=== PATIENT | female | born 1970 | race Caucasian/White ===

== ENCOUNTER → 2022-02-18 | Outpatient (CLI) | payer OTHER ==
--- NOTE | 2022-02-18 15:01 | US ---
EXAMINATION TYPE: US extremity nonvasculr ltd LT DATE OF EXAM: 02/18/2022 COMPARISON: NONE CLINICAL HISTORY: M25.562 PAIN IN LEFT KNEE. Patient has pain behind left knee, especially when she walks. No evident Austin's cyst. Popliteal artery appears to have a possible narrowing. IMPRESSION: 1. Possible narrowing of the popliteal artery. Consider additional workup with a CTA runoff.
== END | disposition home or self-care (01) ==
LOC: RADUSWWP 10:55
PROVIDERS: ATTEND Family Medicine
DX: M25.562 Pain in left knee (principal)

== ENCOUNTER → 2022-09-05 | Outpatient (CLI) | payer OTHER ==
--- NOTE | 2022-09-05 12:10 | MR ---
EXAMINATION TYPE: MR shoulder LT wo con DATE OF EXAM: 09/05/2022 COMPARISON: None HISTORY: Left shoulder pain, decreased range of motion TECHNIQUE: Multiplanar, multisequence imaging of the left shoulder is performed without contrast. FINDINGS: Rotator Cuff: There is a 1 cm partial through thickness tear of the insertion of the supraspinatus te ndon and muscle with the some residual fibers noted in position at the attachment. Infraspinatus tend on demonstrates a partial tear at the insertion of 3 mm of the anterior fibers. Subscapularis intact. Acromioclavicular Joint: Mild hypertrophic changes of the AC joint. No contact upon the rotator cuff musculature. Glenohumeral Joint: Inferior glenohumeral ligament intact. Trace of fluid within the joint space. Car tilage appears preserved. Labrum: The labrum appears grossly intact given limitation of non-arthrogram study. Biceps Tendon: Increased fluid surrounding the biceps tendon compatible with mild bicipital tendinosi s. Biceps tendon is situated within the bicipital groove. Bone marrow signal: No focal abnormal marrow signal is appreciated. IMPRESSION: 1. There is a partial through thickness tear of the insertion of the supraspinatus tendon measuring 1 .2 cm in thickness. 2. The distal 3 mm anterior fibers of the insertion of the infraspinatus demonstrates a partial tear
== END | disposition home or self-care (01) ==
LOC: RADMRIMAIN 10:23
PROVIDERS: ATTEND Family Medicine
DX: M75.112 Incomplete rotator cuff tear or rupture of left shoulder, not specified as traumatic (principal)